=== PATIENT | female | born 2005 | race Caucasian/White ===

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

== ENCOUNTER 2023-01-17 08:51 | Emergency (ER) | payer MEDICAID ==
[~2023-01-17] VITALS: Ht 162.6 cm; Wt 105.8 kg
[~2023-01-17 08:51] MED LIST: BUPR150T8 PO; SERT-153 PO
--- NOTE | 2023-01-17 09:16 | NUR ---
PT CHIEF C/O WAS A COLD BUT SHE IS ACTUALLY HERE FOR HER MAIN CONCERN OF AN ALLERGIC REACTION AFTER EATING AT RESTRAUNT PT STATES SHE PASSED OUT AND LAST CONCIOUSNESS, PT STATES NO MAJOR HEALTH ISSUES BUT THAT SHE HS BEEN SICK THE PAST 2 DAYS. xplvn
[2023-01-17] MEDS ORDERED: METR250T (09:18)
[2023-01-17 10:48] VITALS: BP 108/74; PULSE 108; RESP 16; TEMP 98.2; O2SAT 98
--- NOTE | 2023-01-17 13:44 | NUR ---
TABLE KEEPER ASSESSMENT REVIEWED BY KEVIN RN; APPROVED
== END 2023-01-17 10:59 | disposition home or self-care (01) ==
LOC: ER 08:52
DX: B34.9 Viral infection, unspecified (principal); R05.9 Cough, unspecified; R09.89 Other specified symptoms and signs involving the circulatory and respiratory systems; R51.9 Headache, unspecified; R50.9 Fever, unspecified; F32.9 Major depressive disorder, single episode, unspecified; F12.90 Cannabis use, unspecified, uncomplicated; Z88.0 Allergy status to penicillin; Z79.899 Other long term (current) drug therapy
CPT/HCPCS: 82948; 93005; 99283

== ENCOUNTER 2023-12-31 21:03 | Inpatient (IN) | payer MEDICAID, OTHER ==
[~2023-12-31] VITALS: Ht 160 cm; Wt 103.9 kg
[~2023-12-31 21:03] MED LIST changes: +METR250T
[2023-12-31 21:28] LABS: BILIRUBIN,URINE NEGATIVE (Neg); CLARITY,URINE SLIGHTLY CLOUDY (Clear); COLOR,URINE YELLOW (Yellow); GLUCOSE, URINE NEGATIVE (Neg); KETONES,URINE NEGATIVE (Neg); LEUKOCYTE ESTERASE ,URINE NEGATIVE (Neg); NITRITES, URINE NEGATIVE (Neg); OCCULT BLOOD,URINE NEGATIVE (Neg); PROTEIN,URINE NEGATIVE (Neg); URINE HCG NEGATIVE (NEG); UROBILINOGEN,URINE 0.2 E.U/dL (0.2-1.0)
[2023-12-31 21:29] LABS: UA COLLECTION TYPE CLN CATCH MIDSTREAM
[2023-12-31 21:35] LABS: BACTERIA,URINE FEW /HPF (Neg); MUCUS STRANDS FEW /LPF (Neg); RBC,URINE 0-2 /HPF (0-2); RENAL CELLS, URINE FEW /HPF; SQUAMOUS EPITHELIAL CELL,UR MANY /LPF (FEW); TRANSITIONAL EPI CELLS,URINE FEW /HPF; WBC,URINE 0-4 /HPF (0-4)
[2023-12-31 21:41] LABS: URINE AMPHETAMINE SCREEN NEGATIVE (Neg); URINE BARBITUATE SCREEN NEGATIVE (Neg); URINE BENZODIAZEPINES SCREEN NEGATIVE (Neg); URINE CANNABINOID SCREEN NEGATIVE (Neg); URINE COCAINE SCREEN NEGATIVE (Neg); URINE METHADONE SCREEN NEGATIVE (Neg); URINE OPIATE SCREEN NEGATIVE (Neg); URINE PHENCYCLIDINE SCREEN NEGATIVE (Neg)
[2023-12-31] MEDS ORDERED: NO HOME MEDS (21:43)
[2023-12-31 21:44] LABS: BASOPHILS # (AUTO) 0.2 X10'3 (0-0.2); BASOPHILS % (AUTO) 1.7 % (0-1); EOSINOPHILS # (AUTO) 0.3 X10'3 (0-0.9); EOSINOPHILS % (AUTO) 2.7 % (0-6); HEMATOCRIT 37.5 % (35.0-45.0); HEMOGLOBIN 12.3 g/dl (12.0-16.0); LYMPHOCYTES # (AUTO) 2.8 X10'3 (1.1-4.8); LYMPHOCYTES % (AUTO) 25.9 % (21-51); MEAN CORPUSCULAR HEMOGLOBIN 28.2 PG (27.0-31.0); MEAN CORPUSCULAR HGB CONC 32.7 g/dL (33.0-36.5); MEAN CORPUSCULAR VOLUME 86.3 FL (78-98); MEAN PLATELET VOLUME 8.5 FL (7.4-10.4); MONOCYTES # (AUTO) 0.7 X10'3 (0-0.9); MONOCYTES % (AUTO) 6.9 % (2-12); NEUTROPHILS # (AUTO) 6.9 X10'3 (1.8-7.7); NEUTROPHILS % (AUTO) 62.8 % (42-75); PLATELET COUNT 353 X10'3 (140-440); RED BLOOD COUNT 4.34 X10'6 (4.20-5.60); RED CELL DISTRIBUTION WIDTH 15.1 % (11.5-14.5); WHITE BLOOD COUNT 10.9 X10'3 (4.5-11.0)
[2023-12-31 21:54] LABS: ALANINE AMINOTRANSFERASE 26 U/L (12-78); ALBUMIN 3.8 G/DL (3.4-5.0); ALBUMIN/GLOBULIN RATIO 0.9 (1.1-1.5); ALKALINE PHOSPHATASE 106 IU/L (20-180); ANION GAP 13 (8-16); ASPARTATE AMINO TRANSFERASE 21 U/L (10-37); BILIRUBIN,TOTAL 0.4 MG/DL (0.1-1.0); BLOOD UREA NITROGEN 12 MG/DL (7-18); BUN/CREATININE RATIO 14.8 (10.0-20.0); CALCIUM 9.2 MG/DL (8.5-10.1); CHLORIDE 104 MMOL/L (99-107); CREATININE 0.81 MG/DL (0.40-0.90); GLUCOSE 106 MG/DL (70-104); POTASSIUM 3.8 MMOL/L (3.5-5.1); SODIUM 141 MMOL/L (135-145); TOTAL CARBON DIOXIDE 24.5 MMOL/L (24-32); TOTAL PROTEIN 8.1 G/DL (6.4-8.2); eCRCL 92 ML/MIN; eGFR 90 ML/MIN
[2023-12-31 22:03] LABS: THYROID STIMULATING HORMONE 2.51 ulU/ml (0.34-4.50)
[2023-12-31 22:08] LABS: ETHANOL < 10 MG/DL (<10)
[2024-01-01 14:02] VITALS: BP 117/66; PULSE 89; RESP 16; TEMP 97.4; O2SAT 97
[2024-01-01] MEDS ORDERED: mag hydrox/Alum hydrox/simeth 30ml oral suspension PO PRN (15:00)
[2024-01-01] MEDS ORDERED: loperamide 2mg capsule PO PRN (15:00)
[2024-01-01 16:15] VITALS: RESP 16; O2SAT 97
[2024-01-01] MEDS: acetaminophen 325mg tablet PO PRN (18:06)
[2024-01-01 19:10] VITALS: BP 113/67; PULSE 107; RESP 14; TEMP 98.6; O2SAT 98
[2024-01-02 07:30] VITALS: BP 97/61; PULSE 78; RESP 16; TEMP 97.5; O2SAT 96
[2024-01-02] MEDS: nicotine 21mg patch - 24 hr TD SCH (08:22)
[2024-01-02 08:38] VITALS: RESP 16; O2SAT 96
[2024-01-02 08:48] LABS: HEMOGLOBIN A1C 5.1 % (4.5-6.2)
[2024-01-02 09:00] LABS: CHOL/HDL RATIO 3.7 (0.00-4.99); CHOLESTEROL 156 MG/DL (0-200); HDL CHOLESTEROL 42 MG/DL (35-60); LDL CHOLESTEROL 99 MG/DL (50-100); THYROID STIMULATING HORMONE 3.36 ulU/ml (0.34-4.50); TRIGLYCERIDES 100 MG/DL (20-135)
[2024-01-02 19:00] VITALS: RESP 18; O2SAT 98
[2024-01-02 20:00] VITALS: BP 117/70; PULSE 92; RESP 16; TEMP 96.9; O2SAT 18
[2024-01-02] MEDS: LORazepam 1 MG tablet PO ONE (20:40)
[2024-01-02] MEDS: lurasidone 20mg tablet PO SCH (21:00)
[2024-01-02] MEDS: acetaminophen 325mg tablet PO PRN (21:33)
[2024-01-02] MEDS: NICOTINE POLACRILEX 2 MG LOZENGE BC PRN (21:33)
[2024-01-02] MEDS: traZODone 50mg tablet PO SCH (22:29)
[2024-01-03 07:00] VITALS: BP 109/65; PULSE 81; RESP 16; TEMP 96.5; O2SAT 99
[2024-01-03] MEDS ORDERED: lurasidone 20mg tablet PO SCH (07:30)
[2024-01-03 19:00] VITALS: RESP 14; O2SAT 95
[2024-01-03 20:00] VITALS: BP 120/84; PULSE 94; RESP 16; TEMP 97.3; O2SAT 94
[2024-01-03] MEDS: lurasidone 20mg tablet PO SCH (20:31)
[2024-01-04 07:30] VITALS: RESP 16; O2SAT 98
[2024-01-04 08:00] VITALS: BP 118/72; PULSE 93; RESP 16; TEMP 97.6; O2SAT 98
[2024-01-04 19:00] VITALS: RESP 22; O2SAT 100
[2024-01-04] MEDS: magnesium hydroxide 30ml (MOM) UD suspension PO PRN (20:30)
[2024-01-04 20:41] VITALS: BP 134/84; PULSE 102; RESP 22; TEMP 97.8; O2SAT 100
[2024-01-05 07:00] VITALS: RESP 18; O2SAT 97
[2024-01-05 08:00] VITALS: BP 102/69; PULSE 92; RESP 20; TEMP 97.9; O2SAT 97
[2024-01-05] MEDS ORDERED: LURA20TA2 PO (08:44)
[2024-01-05] MEDS ORDERED: HYDR-3686 PO (08:44)
[2024-01-05] MEDS ORDERED: TRAZ-251 PO (08:44)
[2024-01-05] MEDS: hydrOXYzine 25 MG tablet PO PRN (09:37)
== END 2024-01-05 14:00 | disposition home or self-care (01) | DRG 751 ==
LOC: ER 21:03 → ED HOLD 01-01 12:00 → EEVIPCON 01-01 12:00 → ADULT MH 01-01 14:20
PROVIDERS: ADMIT Psychiatry & Neurology Psychiatry; ATTEND Psychiatry & Neurology Psychiatry
DX: F33.1 Major depressive disorder, recurrent, moderate (principal); R45.851 Suicidal ideations; F43.10 Post-traumatic stress disorder, unspecified; Z20.822 Contact with and (suspected) exposure to COVID-19; E66.9 Obesity, unspecified; F41.9 Anxiety disorder, unspecified; Z68.41 Body mass index [BMI] 40.0-44.9, adult
CPT/HCPCS: 36415; 80053; 80061; 80305; 80320; 81001; 81025; 83036; 84443; 85025; 87081; 87811; 99285; Q0177

== ENCOUNTER 2024-05-05 12:12 | Emergency (ER) | payer MEDICAID ==
[~2024-05-05] VITALS: Ht 157.5 cm; Wt 101.3 kg
[~2024-05-05 12:12] MED LIST changes: -BUPR150T8 PO; +HYDR-3686 PO; +LURA20TA2 PO; -METR250T; -SERT-153 PO; +TRAZ-251 PO
[2024-05-05 12:31] VITALS: BP 125/72; PULSE 98; RESP 18; TEMP 97.4; O2SAT 98
[2024-05-05] MEDS ORDERED: PRED20TA PO (14:16)
[2024-05-05] MEDS: dexamethasone sod phosphate 10mg/ml inj IM ONE (14:32)
== END 2024-05-05 14:40 | disposition home or self-care (01) ==
LOC: ER 12:12
DX: J03.90 Acute tonsillitis, unspecified (principal); F32.A Depression, unspecified; F12.90 Cannabis use, unspecified, uncomplicated; Z88.0 Allergy status to penicillin; Z91.011 Allergy to milk products
CPT/HCPCS: 96372; 99283; J1100

== ENCOUNTER 2024-06-01 15:38 | Emergency (ER) | payer MEDICAID ==
[~2024-06-01] VITALS: Ht 160 cm; Wt 100.0 kg
[2024-06-01 15:47] VITALS: TEMP 98.2
[2024-06-01 16:44] LABS: BASOPHILS % (AUTO) 0.4 % (0-1); EOSINOPHILS # (AUTO) 0.3 X10'3 (0-0.9); EOSINOPHILS % (AUTO) 2.8 % (0-6); HEMATOCRIT 34.9 % (35.0-45.0); HEMOGLOBIN 11.5 g/dl (12.0-16.0); LYMPHOCYTES # (AUTO) 1.7 X10'3 (1.1-4.8); LYMPHOCYTES % (AUTO) 18.6 % (21-51); MEAN CORPUSCULAR HEMOGLOBIN 28.8 PG (27.0-31.0); MEAN CORPUSCULAR VOLUME 87.3 FL (78-98); MEAN PLATELET VOLUME 7.6 FL (7.4-10.4); MONOCYTES # (AUTO) 0.6 X10'3 (0-0.9); MONOCYTES % (AUTO) 6.5 % (2-12); NEUTROPHILS # (AUTO) 6.7 X10'3 (1.8-7.7); NEUTROPHILS % (AUTO) 71.7 % (42-75); PLATELET COUNT 335 X10'3 (140-440); RED CELL DISTRIBUTION WIDTH 15.1 % (11.5-14.5); WHITE BLOOD COUNT 9.4 X10'3 (4.5-11.0)
[2024-06-01 17:01] LABS: ALANINE AMINOTRANSFERASE 34 U/L (12-78); ALBUMIN 3.2 G/DL (3.4-5.0); ALBUMIN/GLOBULIN RATIO 0.7 (1.1-1.5); ALKALINE PHOSPHATASE 104 IU/L (20-180); ANION GAP 10 (8-16); ASPARTATE AMINO TRANSFERASE 30 U/L (10-37); BILIRUBIN,TOTAL 0.3 MG/DL (0.1-1.0); BLOOD UREA NITROGEN 8 MG/DL (7-18); BUN/CREATININE RATIO 11.1 (10.0-20.0); CALCIUM 8.8 MG/DL (8.5-10.1); CHLORIDE 106 MMOL/L (99-107); CREATININE 0.72 MG/DL (0.40-0.90); GLUCOSE 97 MG/DL (70-104); LIPASE 18 U/L (16-77); POTASSIUM 3.8 MMOL/L (3.5-5.1); SODIUM 141 MMOL/L (135-145); TOTAL CARBON DIOXIDE 24.8 MMOL/L (24-32); TOTAL PROTEIN 7.6 G/DL (6.4-8.2); eCRCL 103 ML/MIN; eGFR > 90 ML/MIN
[2024-06-01] MEDS: ondansetron 4mg rapidly disintigrating tab PO ONE (17:13)
[2024-06-01 18:04] VITALS: BP 132/78; PULSE 82; RESP 16; O2SAT 98
== END 2024-06-01 18:06 | disposition home or self-care (01) ==
LOC: ER 15:39
DX: K80.20 Calculus of gallbladder without cholecystitis without obstruction (principal); Z88.0 Allergy status to penicillin
CPT/HCPCS: 36415; 76700; 80053; 83690; 85025; 99284

== ENCOUNTER 2024-08-01 12:35 | Emergency (ER) | payer MEDICAID ==
[~2024-08-01] VITALS: Ht 160 cm; Wt 102.6 kg
[2024-08-01 14:07] LABS: BASOPHILS # (AUTO) 0.1 X10'3 (0-0.2); BASOPHILS % (AUTO) 0.7 % (0-1); EOSINOPHILS # (AUTO) 0.4 X10'3 (0-0.9); EOSINOPHILS % (AUTO) 4.3 % (0-6); HEMATOCRIT 36.4 % (35.0-45.0); HEMOGLOBIN 11.9 g/dl (12.0-16.0); LYMPHOCYTES # (AUTO) 2.7 X10'3 (1.1-4.8); LYMPHOCYTES % (AUTO) 28.4 % (21-51); MEAN CORPUSCULAR HEMOGLOBIN 27.9 PG (27.0-31.0); MEAN CORPUSCULAR HGB CONC 32.6 g/dL (33.0-36.5); MEAN CORPUSCULAR VOLUME 85.4 FL (78-98); MEAN PLATELET VOLUME 8.1 FL (7.4-10.4); MONOCYTES # (AUTO) 0.7 X10'3 (0-0.9); MONOCYTES % (AUTO) 7.5 % (2-12); NEUTROPHILS # (AUTO) 5.6 X10'3 (1.8-7.7); NEUTROPHILS % (AUTO) 59.1 % (42-75); PLATELET COUNT 375 X10'3 (140-440); RED BLOOD COUNT 4.26 X10'6 (4.20-5.60); WHITE BLOOD COUNT 9.4 X10'3 (4.5-11.0)
[2024-08-01 14:23] LABS: ALANINE AMINOTRANSFERASE 32 U/L (12-78); ALBUMIN 3.5 G/DL (3.4-5.0); ALBUMIN/GLOBULIN RATIO 0.9 (1.1-1.5); ALKALINE PHOSPHATASE 111 IU/L (20-180); ANION GAP 9 (8-16); ASPARTATE AMINO TRANSFERASE 23 U/L (10-37); BILIRUBIN,TOTAL 0.4 MG/DL (0.1-1.0); BLOOD UREA NITROGEN 6 MG/DL (7-18); BUN/CREATININE RATIO 9.5 (10.0-20.0); CALCIUM 8.6 MG/DL (8.5-10.1); CHLORIDE 105 MMOL/L (99-107); CREATININE 0.63 MG/DL (0.40-0.90); GLUCOSE 82 MG/DL (70-104); LIPASE 19 U/L (16-77); POTASSIUM 3.9 MMOL/L (3.5-5.1); SODIUM 138 MMOL/L (135-145); TOTAL CARBON DIOXIDE 23.6 MMOL/L (24-32); TOTAL PROTEIN 7.5 G/DL (6.4-8.2); eCRCL 118 ML/MIN; eGFR > 90 ML/MIN
[2024-08-01 15:40] VITALS: TEMP 98.7
[2024-08-01 15:52] LABS: URINE HCG NEGATIVE (NEG)
[2024-08-01 15:55] LABS: BILIRUBIN,URINE NEGATIVE (Neg); CLARITY,URINE CLOUDY (Clear); COLOR,URINE STRAW (Yellow); GLUCOSE, URINE NEGATIVE (Neg); KETONES,URINE NEGATIVE (Neg); LEUKOCYTE ESTERASE ,URINE TRACE (Neg); NITRITES, URINE NEGATIVE (Neg); OCCULT BLOOD,URINE NEGATIVE (Neg); PROTEIN,URINE NEGATIVE (Neg); UROBILINOGEN,URINE 0.2 E.U/dL (0.2-1.0)
[2024-08-01 15:56] LABS: UA COLLECTION TYPE CLN CATCH MIDSTREAM
[2024-08-01 16:04] LABS: BACTERIA,URINE 4+ /HPF (Neg); MUCUS STRANDS NONE SEEN /LPF (Neg); RBC,URINE 0-2 /HPF (0-2); SQUAMOUS EPITHELIAL CELL,UR MANY /LPF (FEW)
--- NOTE | 2024-08-01 16:20 | Physician Documentation ---
History of Present Illness Chief Complaint: Abdominal Pain w/vomiting Stated Complaint: GALLBLADDER ISSUES Time Seen by MD: 15:32 Primary Medical Doctor: none HPI 18-year-old female presents to the ED with a complaint of one day of right upper quadrant pain. She states she was already previously been diagnosed with gallstones. Her last visit in the ED an ultrasound confirm these however the numb the stones were obstructing. Currently patient was not in severe pain but states that she woke up this morning and in severe pain which was similar to her last episode. She has been seen for this in the outpatient setting and was supposed to follow up getting ultrasounds done however she was not done this for unknown reasons. Denies any fevers denies any vomiting currently has had vomiting earlier today Day of Onset: August 01, 2024 Medication Reconciliation Allergies: Coded Allergies: Penicillins (Verified Allergy, Unknown, HIVES, 01/17/23) lactose (Unverified Adverse Reaction, Unknown, 01/01/24) Scheduled Lurasidone HCl (Lurasidone HCl), 40 MG PO HS Trazodone HCl (Trazodone HCl), 50 MG PO HS Scheduled PRN Hydrocodone Bit/Acetaminophen 5/325 MG ([place] 5/325 MG), 1 TAB PO Q6H PRN for pain Hydroxyzine Hcl* (Atarax*), 50 MG PO Q6H PRN for anxiety Past Medical History Past Medical History: Depression Past Surgical History: no surgical history Alcohol Use: None Drug Use: marijuana Lives In: Home Review of Systems All Other Systems at this time: Reviewed and Negative ROS As stated above in the HPI, otherwise all systems are reviewed and negative. Constitutional: Reports: no symptoms reported Physical Exam Vital Signs: Temperature: 98.7, Source: Oral, Heart Rate: 80, Respiratory Rate: 16, BP: 120/85, Pulse Oximetry: 98, Weight: 102.600 Oxygen Flow Rate: 0 Physical Exam General: Alert, no apparent distress. Respiratory: Lungs clear, no respiratory distress. Cardiovascular: Regular rate and rhythm, no murmurs. Gastrointestinal: Soft, positive Pulido's no tenderness in the lower right and left quadrants or the left upper quadrant. Neurologic: Oriented x4. Psychiatric: Normal mood and affect. Skin: Normal color, warm and dry. No edema, no ecchymosis. Progress Results/Orders Results/Orders Vital Signs 08/01/24 08/01/24 13:00 15:40 Temp 98.7 98.7 Pulse 88 80 Resp 16 16 B/P (MAP) 141/90 120/85 (97) Pulse Ox 98 98 O2 Flow Rate 0 0 Laboratory Tests Test 08/01/24 13:36 08/01/24 15:25 White Blood Count 9.4 Red Blood Count 4.26 Hemoglobin 11.9 L Hematocrit 36.4 Mean Corpuscular Volume 85.4 Mean Corpuscular Hemoglobin 27.9 Mean Corpuscular Hemoglobin Concent 32.6 L Red Cell Distribution Width 14.0 Platelet Count 375 Mean Platelet Volume 8.1 Neutrophils (%) (Auto) 59.1 Lymphocytes (%) (Auto) 28.4 Monocytes (%) (Auto) 7.5 Eosinophils (%) (Auto) 4.3 Basophils (%) (Auto) 0.7 Neutrophils # (Auto) 5.6 Lymphocytes # (Auto) 2.7 Monocytes # (Auto) 0.7 Eosinophils # (Auto) 0.4 Basophils # (Auto) 0.1 CBC Comment Sodium Level 138 Potassium Level 3.9 Chloride Level 105 Carbon Dioxide Level 23.6 L Anion Gap 9 Blood Urea Nitrogen 6 L Creatinine 0.63 Estimated GFR/1.73 m2 > 90 BUN/Creatinine Ratio 9.5 L Glucose Level 82 Calcium Level 8.6 Total Bilirubin 0.4 Aspartate Amino Transf (AST/SGOT) 23 Alanine Aminotransferase (ALT/SGPT) 32 Alkaline Phosphatase 111 Total Protein 7.5 Albumin 3.5 Globulin 4.0 Albumin/Globulin Ratio 0.9 L Lipase 19 Chemistry Comments Urine Specimen Description Cln catch midstream Urine Color Straw Urine Clarity Cloudy Urine pH 6.0 Urine Specific [place] <=1.005 Urine Protein Negative Urine Glucose (UA) Negative Urine Ketones Negative Urine Occult Blood Negative Urine Nitrite Negative Urine Bilirubin Negative Urine Urobilinogen 0.2 Urine Leukocyte Esterase Trace H Urine RBC 0-2 Urine WBC 5-10 H Urine Squamous Epithelial Cells Many Urine Bacteria 4+ Urine Mucus None seen Urine Culture Indicated Rejected for culture Volume Urine Centrifuged 10 ml Urine HCG, Qualitative Negative Urine Comment Medical Decision Making Findings Patient's previous ultrasound indicated" Cholelithiasis without convincing evidence of acute cholecystitis. If symptoms persist, further evaluation with HIDA scan is recommended." Patient's laboratory values do not indicate any signs of infection. He was does not present in severe pain at this time. Going to send her home with some [place] to help with any gallbladder flare-ups. However she was not present as though she needs emergent consultation with Gastroenterology or General surgery. Differential Dx:Considerations: Include: AAA, -Complete, - Incomplete, -Inevitable, -Missed, -Threatened, Abruptio placentae, Angina/VA, Aortic dissection, Appendicitis, Bowel obstruction, Cholangitis, Cholelithasis, Constipation, Diverticular disease, Esophageal rupture, Esophagitis, Gastritis/PUD, Gastroenteritis, GI hemorrhage, Hernia, Hepatitis, Inflammatory BD, Ischemic bowel, Ovarian cyst/torsion, Pancreatitis, PID, Porphyria, Trauma, intraabdominal, Urinary obstruction, Urinary tract infection, Urolithiasis, Other Departure Disposition: HOME / SELF CARE / HOMELESS Impression: Primary Impression: Cholelithiasis without obstruction Additional Instructions: Her laboratory results do not indicate indicate any signs of acute infection. As discussed it is important that she follow up in the outpatient setting and obtain a referral to see a general surgeon in order to have your gallbladder removed they need to have the diagnostic test completed so they can evaluate her gallbladder his diagnostic tests include having ultrasound. Request that your primary care provider orders a HIDA scan to further evaluate her gallbladder prior to having your 1st visit with a general surgeon Referrals: NO PRIMARY CARE PROVIDER (PCP) JERZY HARRIS MD Prescriptions Hydrocodone Bit/Acetaminophen 5/325 MG ([place] 5/325 MG) 5 Mg/325 Mg Tablet 1 TAB PO Q6H PRN for pain, #14 TAB Prov: MARTIN HARMON NP 08/01/24 Signature Scribe Signature: d Attestation: The note accurately reflects work and decisions made by me.Martin Liz NP 08/01/24 18:35 MARTIN HARMON NP August 01, 2024 16:20
[2024-08-01] MEDS ORDERED: HYDR-3965 PO (16:31)
[2024-08-01 16:44] VITALS: BP 133/82; PULSE 80; RESP 16; O2SAT 98
== END 2024-08-01 16:46 | disposition home or self-care (01) ==
LOC: ER 12:36
DX: K80.20 Calculus of gallbladder without cholecystitis without obstruction (principal); Z88.0 Allergy status to penicillin
CPT/HCPCS: 36415; 80053; 81001; 81025; 83690; 85025; 99283